=== PATIENT | female | born 1955 | race Two or more races ===

== ENCOUNTER 2020-08-14 13:01 | Emergency (ER) | payer OTHER ==
[~2020-08-14] VITALS: Ht 149.9 cm; Wt 43.5 kg
[~2020-08-14 13:01] MED LIST: AVALIDE 150-12.1 TA1; CRESTOR20 MG; KEPPRA500 MG; LAMICTAL200 M1; LOSARTAN POTASS50 MG PO; METOPROLOL SUCC50 MG; RESTORIL7.5 MG; SIMVASTATIN40 MG PO; SIMVASTATIN5 MG; XANAX1 MG
[2020-08-14] MEDS ORDERED: NORFLEX100MG PO (16:01)
[2020-08-14] MEDS ORDERED: MEDROLPACK PO (16:01)
== END 2020-08-14 16:08 | disposition home or self-care (01) ==
LOC: ER 13:01
DX: M54.2 Cervicalgia (principal)